=== PATIENT | male | born 1950 ===

== ENCOUNTER 2016-08-17 19:44 | Emergency (ER) | payer MEDICARE ==
[2016-08-17 19:55] VITALS: RESP 18; TEMP 97.8; O2SAT 99
[2016-08-17] MEDS ORDERED: TDAP Vaccine 0.5 mL Syr IM ONE (20:35)
--- NOTE | 2016-08-17 20:58 | ED PDOC ---
HPI: General Adult Time Seen by Provider: 08/17/16 20:10 Chief Complaint (Nursing): Lower Extremity Problem/Injury History Per: Patient Additional Complaint(s): Pt. states at approximately 1830 today he was attempting to lift up a garbage bag with his L foot and in doing so he sustained a laceration to the top of the L foot. Further reports he does get nervous while in hospitals as he is scared of needles and reports that his BP does usually drop. Denies weakness, numbness , tignling, FB sensation. Past Medical History Reviewed: Historical Data, Nursing Documentation, Vital Signs Vital Signs: Last Vital Signs Temp 97.8 F 08/17/16 19:51 Pulse 68 08/17/16 19:51 Resp 18 08/17/16 19:51 BP 114/58 L 08/17/16 20:09 Pulse Ox 99 08/17/16 22:20 - Medical History PMH: HTN, Hyperlipidemia - Surgical History Surgical History: CABG - Family History Family History: States: No Known Family Hx - Home Medications Home Medications: Ambulatory Orders Medication Instructions Recorded Cephalexin [cephalexin] 500 mg PO Q6 #28 cap 08/17/16 - Allergies Allergies/Adverse Reactions: Allergies Allergy/AdvReac Type Severity Reaction Status Date / Time No Known Allergies Allergy Verified 08/17/16 19:50 Review of Systems ROS Statement: Except As Marked, All Systems Reviewed And Found Negative Musculoskeletal: Positive for: Foot Pain Physical Exam - Reviewed Nursing Documentation Reviewed: Yes Vital Signs Reviewed: Yes - Physical Exam Appears: Positive for: Well, Non-toxic, No Acute Distress Head Exam: Positive for: ATRAUMATIC, NORMAL INSPECTION, NORMOCEPHALIC Skin: Positive for: Normal Color, Warm. Negative for: Rash Eye Exam: Positive for: EOMI, Normal appearance, PERRL ENT: Positive for: Normal ENT Inspection Neck: Positive for: Normal, Painless ROM Cardiovascular/Chest: Positive for: Regular Rate, Rhythm Respiratory: Positive for: CNT, Normal Breath Sounds Pulses-Dorsalis Pedis (L): 2+ Pulses-Dorsalis Pedis (R): 2+ Gastrointestinal/Abdominal: Positive for: Normal Exam, Bowel Sounds, Soft. Negative for: Tenderness Back: Positive for: Normal Inspection Extremity: Positive for: Normal ROM, Capillary Refill (< 2 seconds of L foot), Other (L dorsal foot with approximatley 1 inch linear laceration that is not active bleeding with FROM activley of L foot) Neurologic/Psych: Positive for: Alert, Oriented - Laboratory Results Result Diagrams: 08/17/16 21:05 08/17/16 21:05 - ECG O2 Sat by Pulse Oximetry: 99 - Progress ED Course And Treament: Repeat BP: 114/58. Foot x-ray ordered. Tetanus prophylaxis administered. Pt evaluated by [facility], who requests labs to be done. Labs ordered. Laceration repair done by podiatry. Requests that Keflex be prescribed and to f/ u with podiatry clinic on Sunday. Disposition - Clinical Impression Clinical Impression: Foot laceration - Patient ED Disposition Is Patient to be Admitted: No - Disposition Referrals: Podiatry Clinic [Outside] Disposition: Routine/Home Disposition Time: 22:17 Condition: STABLE Additional Instructions: Follow up with Podiatry Clinic on Sunday WITHOUT FAIL. Prescriptions: Cephalexin [cephalexin] 500 mg PO Q6 #28 cap Instructions: Laceration (ED) Print Language: MOHAWK
[2016-08-17 21:24] LABS: BASO # 0.1 K/uL (0.0-0.2); BASO % 0.7 % (0.0-2.0); EOS # 0.1 K/uL (0.0-0.7); EOS % 2.1 % (0.0-4.0); HEMOGLOBIN 11.5 g/dL (12.0-18.0); LYMPH # 2.6 K/uL (1.0-4.3); LYMPH % 37.5 % (20.0-40.0); MEAN CELL VOLUME 88.3 fl (80.0-94.0); MEAN CORPUSCULAR HEMOGLOBIN 28.9 pg (27.0-31.0); MEAN CORPUSCULAR HGB CONC 32.7 g/dL (33.0-37.0); MEAN PLATELET VOLUME 7.4 fl (7.2-11.7); MONO # 0.4 K/uL (0.0-0.8); MONO % 5.6 % (0.0-10.0); NEUT # 3.8 K/uL (1.8-7.0); NEUT % 54.1 % (50.0-75.0); NRBC % 0.1 % (0.0-0.0); RBC 3.99 Mil/uL (4.40-5.90)
[2016-08-17] MEDS ORDERED: Lidocaine 1% Inj (20ml) ONE (21:30)
[2016-08-17 21:34] LABS: ALB/GLOB RATIO 1.2 (1.0-2.1); ALBUMIN 3.7 g/dL (3.5-5.0); ALT/SGPT 47 U/L (21-72); AST/SGOT 44 U/L (17-59); BLOOD UREA NITROGEN 28 mg/dl (9-20); CALCIUM 8.5 mg/dL (8.4-10.2); GFR AFRICAN-AMERICAN > 60; GFR NON-AFRICAN AMERICAN > 60
[2016-08-17 21:41] LABS: PARTIAL THROMBOPLASTIN TIME 30.9 Seconds (25.6-37.1); PROTHROMBIN TIME 11.6 Seconds (9.8-13.1)
--- NOTE | 2016-08-17 22:34 | CP.PCM.CON ---
History of Present Illness - History of Present Illness History of Present Illness: 65 year old male patient with PMHx DM, gout, HLD, HTN presents to the ED with a laceration to the top of his left foot. Patient states that at 7 pm this evening he was taking the trash out when he felt a "pop" on the top of his foot. Patient states that he saw blood coming out of the top of his foot but denies any acute trauma. Patient's states that she bandaged the top of his foot to reduce bleeding. Patient denies N/V/F/C/D/SOB/CP. No other pedal complaints at this time. PMH: DM, gout, HLD, HTN PSH: open heart surgery, hernia repair FH: non-contributory SH: ETOH, no tobacco, no illict drugs All: NKDA Review of Systems - Constitutional Constitutional: As Per HPI Past Patient History - Past Social History Smoking Status: Never Smoked - CARDIAC Hx Hypertension: Yes - PSYCHIATRIC Hx Substance Use: No - SURGICAL HISTORY Hx Coronary Artery Bypass Graft: Yes Meds Home Medications: Home Medication List Medication Instructions Recorded Confirmed Type Cephalexin [cephalexin] 500 mg PO Q6 #28 cap 08/17/16 Rx Allergies/Adverse Reactions: Allergies Allergy/AdvReac Type Severity Reaction Status Date / Time No Known Allergies Allergy Verified 08/17/16 19:50 Physical Exam - Constitutional Appears: Well, Non-toxic, No Acute Distress - Extremities Exam Additional comments: Vasc: DP and PT pulses palpable 2/4 b/l. CFT <3 seconds to all digits x10. TG warm to warm. Neuro: Gross sensation diminished. Derm: 3 cm deep laceration noted to dorsomedial aspect of midfoot with active bleeding noted. Erythema noted periwound. No clinical suspicion of infection noted at this time. No foreign body noted to laceration. Ortho: No pain on palpation noted to laceration. - Neurological Exam Neurological exam: Alert, Oriented x3 - Psychiatric Exam Psychiatric exam: Normal Affect, Normal Mood Results - Vital Signs Recent Vital Signs: Last Vital Signs Temp 97.8 F 08/17/16 19:51 Pulse 68 08/17/16 19:51 Resp 18 08/17/16 19:51 BP 114/58 L 08/17/16 20:09 Pulse Ox 99 08/17/16 22:20 - Labs Result Diagrams: 08/17/16 21:05 08/17/16 21:05 Labs: Laboratory Results - last 24 hr 08/17/16 08/17/16 08/17/16 21:05 21:05 21:05 WBC 7.0 RBC 3.99 L Hgb 11.5 L Hct 35.2 MCV 88.3 MCH 28.9 MCHC 32.7 L RDW 15.0 H Plt Count 176 MPV 7.4 Neut % (Auto) 54.1 Lymph % (Auto) 37.5 [place] % (Auto) 5.6 Eos % (Auto) 2.1 Baso % (Auto) 0.7 Neut # 3.8 Lymph # 2.6 [place] # 0.4 Eos # 0.1 Baso # 0.1 PT 11.6 INR 1.0 APTT 30.9 Sodium 142 Potassium 4.2 Chloride 105 Carbon Dioxide 27 Anion Gap 14 BUN 28 H Creatinine 1.2 Est GFR ( Amer) > 60 Est GFR (Non-Af Amer) > 60 Random Glucose 107 Calcium 8.5 Total Bilirubin 0.2 AST 44 ALT 47 Alkaline Phosphatase 70 Total Protein 6.8 Albumin 3.7 Globulin 3.1 Albumin/Globulin Ratio 1.2 Assessment & Plan - Assessment and Plan (Free Text) Assessment: 65 year old DM male with 3 cm laceration to dorsomedial left midfoot. Plan: Patient seen and evaluated with attending, Dr. Lau. Charts, labs, vitals reviewed = afebrile, Hgb 11.5. Wound was flushed with betadine and saline solution. 7ccs of 1% lidocaine was injected to dorsum of left midfoot around laceration. Patient's laceration was sutured using sterile technique, with 3-0 biosyn and 3- 0 nylon. Patient tolerated the procedure well. Wound was dressed with xeroform, sterile 4x4s, kerlix, and an BLANCHE wrap. Patient advised to keep dressing clean/dry/intact for 1 week until clinic visit. Rx Keflex Patient advised to follow up in the podiatry clinic next week 08/25/16. Patient demonstrated verbal understanding. Thank you for podiatry consult, please re-consult again as needed. - Date & Time Date: 08/17/16 Time: 22:41
[2016-08-17 22:58] VITALS: BP 127/81; PULSE 67
--- NOTE | 2016-08-18 11:16 | RAD ---
PROCEDURE: Left Foot Radiographs. HISTORY: Trauma COMPARISON: None. FINDINGS: BONES: Bone alignment and mineralization are normal. No acute fracture. JOINTS: Normal. SOFT TISSUES: There is mild soft tissue swelling in the forefoot. OTHER FINDINGS: None. IMPRESSION: No acute fracture or dislocation.
== END 2016-08-17 23:00 | disposition home or self-care (01) ==
LOC: H.ER 19:44
DX: S91.312A Laceration without foreign body, left foot, initial encounter (principal); I10 Essential (primary) hypertension; Z95.1 Presence of aortocoronary bypass graft; Z23 Encounter for immunization